=== PATIENT | male | born 1980 | race Caucasian/White ===

== ENCOUNTER 2023-04-12 07:39 | Emergency (ER) | payer OTHER, SELFPAY ==
[2023-04-12 07:42] VITALS: BP 165/78; PULSE 81; RESP 18; TEMP 36.3; O2SAT 98; BMI 25.1
--- NOTE | 2023-04-12 07:56 | ED.GENADULT ---
HPI - General Adult General Chief complaint: Laceration/Wound Stated complaint: finger laceration Time Seen by Provider: 04/12/23 07:52 History of Present Illness HPI narrative: CC: Generalized Pain pt. h/o fibromylagia. hasn't been able to get her gabapentin filled and she missed pain clinic. denies n/v, diarrhea, fevers. 43 year old man presenting to the emergency department Related Data Home Medications Medication Instructions Recorded Confirmed fluoxetine 20 mg capsule 20 mg PO QAM 04/12/23 04/12/23 Allergies Allergy/AdvReac Type Severity Reaction Status Date / Time Penicillins Allergy Verified 04/12/23 07:45 Exam Const: Vital Signs, click to edit/add: Vital Signs - 24 hr 04/12/23 07:42 Temperature 97.3 F L Pulse Rate [Right Pulse Oximeter] 81 Respiratory Rate 18 Blood Pressure [Ri ght Upper Arm] 165/78 H Pulse Oximetry 98 Oxygen Delivery Me thod Room Air Course Vital Signs Vital signs: Initial Vital Signs Temperature 97.3 F L 04/12/23 07:42 Temperature Source Temporal Artery Scan 04/12/23 07:42 Pulse Rate 81 04/12/23 07:42 Respiratory Rate 18 04/12/23 07:42 Blood Pressure 165/78 H 04/12/23 07:42 Blood Pressure Mean 107 H 04/12/23 07:42 Blood Pressure Position Sitting 04/12/23 07:42 Pulse Oximetry 98 04/12/23 07:42 Oxygen Delivery Method Room Air 04/12/23 07:42 Vital Signs Temperature 97.3 F L 04/12/23 07:42 Pulse Rate 81 04/12/23 07:42 Respiratory Rate 18 04/12/23 07:42 Blood Pressure 165/78 H 04/12/23 07:42 Pulse Oximetry 98 04/12/23 07:42 Oxygen Delivery Method Room Air 04/12/23 07:42 Temperature 97.3 F L 04/12/23 07:42 Pulse Rate 81 04/12/23 07:42 Respiratory Rate 18 04/12/23 07:42 Blood Pressure 165/78 H 04/12/23 07:42 Pulse Oximetry 98 04/12/23 07:42 Oxygen Delivery Method Room Air 04/12/23 07:42 Discharge Plan Discharge Prescriptions: No Action fluoxetine 20 mg capsule 20 mg PO QAM Follow Up/Referrals: Jerry Gonzalez MD [Primary Care Provider] -
--- NOTE | 2023-04-12 08:02 | ED_ITS ---
HPI - General Adult General Date Seen: 04/12/23 Chief complaint: Laceration/Wound Stated complaint: finger laceration Time Seen by Provider: 04/12/23 07:52 History of Present Illness HPI narrative: 43-year-old male presenting to the ER on Thursday morning with a laceration to his right 5th finger. He was doing the dishes this morning. As he was just finishing that this is he was trying the inside of wine glass when it broke. He suffered a laceration to the dorsum of his right hand 5th digit from the broken glass about 1 glass. He did not see any glass foreign objects going to the finger. He copiously irrigated the finger under the faucet after laceration. He had ongoing dark red venous oozing from the finger. He was able to apply direct pressure and wrapped his finger up with some gauze but it was still oozing. He came here to the ER. No associated numbness in the distal finger. No other laceration or injury. Last tetanus was 11 years ago in 2012. No history of diabetes or immunosuppression He lacerated it on a wine glass. Related Data Home Medications Medication Instructions Recorded Confirmed fluoxetine 20 mg capsule 20 mg PO QAM 04/12/23 04/12/23 Allergies Allergy/AdvReac Type Severity Reaction Status Date / Time Penicillins Allergy Verified 04/12/23 07:45 [facility] Social History Smoking Status: Former smoker How often do you have a drink containing alcohol: 2-3 times a week How many standard drinks containing alcohol do you have on a typical day: 1 or 2 How often do you have six or more drinks on one occasion: Never AUDIT-C Alcohol total score: 3 Non-prescribed substance use: denies use Exam Narrative: Exam Narrative: Constitutional: Appears well-developed and well-nourished. Alert. Conversant. Non toxic. HENT: Head: Atraumatic. Nose: Nose normal. Mouth/Throat: Oral mucosa is clear and moist. no trismus. Pharynx normal. Tonsils symmetric. No tonsillar enlargement, erythema, or exudate. Eyes: Conjunctivae normal. EOM normal. Pupils equal, round, and reactive to light. No scleral icterus. Neck: Normal range of motion. Neck supple. No tracheal deviation present. Cardiovascular: Normal rate, regular rhythm. No gallop. No friction rub. No murmur heard. Symmetric radial artery pulses Pulmonary/Chest: Effort normal. No stridor. No respiratory distress. No wheezes. No rales. No rhonchi . No tenderness. Abdominal: Soft. Bowel sounds normal. No distension. No mass. No tenderness. No rebound. No guarding. Musculoskeletal: RUE: Normal range of motion. No tenderness. No deformity. He has a 2 cm cu rvilinear laceration over the dorsum of the 5th digit. Laceration starts out over the dorsal/medial proximal phalanges, extends across the PIP joint and ends over the dorsum of the middle phalanges. He has full range of motion in the MCP, PIP, DI P. No evidence for extensor tendon or flexor tendon injury. Tourniquet is applied. Inspected in a bloodless field. No foreign body. Moved through the entire range of motion and not able to see any foreign body, tendon laceration, or involvement of the PIP joint capsule. Intact radial and ulnar digital nerve function. Normal distal cap refill. LUE: Normal range of motion. No tenderness. No deformity RLE: Normal range of motion. No edema. No tenderness. No deformity LLE: Normal range of motion. No edema. No tenderness. No deformity Lymph: No cervical adenopathy. Neurological: Alert and oriented to person, place, and time. Normal strength. CN II-VII intact. No sensory deficit. GCS eye subscore is 4. GCS verbal subscore is 5. GCS motor subscore is 6. Normal coordination Skin: Skin is warm and dry. No rash noted. No pallor. Normal capillary refill. Psychiatric: Normal mood. Normal affect. Const: Vital Signs, click to edit/add: Vital Signs - 24 hr 04/12/23 07:42 Temperature 97.3 F L Pulse Rate [Right Pulse Oximeter] 81 Respiratory Rate 18 Blood Pressure [Ri ght Upper Arm] 165/78 H Pulse Oximetry 98 Oxygen Delivery Me thod Room Air Course Vital Signs Vital signs: Initial Vital Signs Temperature 97.3 F L 04/12/23 07:42 Temperature Source Temporal Artery Scan 04/12/23 07:42 Pulse Rate 81 04/12/23 07:42 Respiratory Rate 18 04/12/23 07:42 Blood Pressure 165/78 H 04/12/23 07:42 Blood Pressure Mean 107 H 04/12/23 07:42 Blood Pressure Position Sitting 04/12/23 07:42 Pulse Oximetry 98 04/12/23 07:42 Oxygen Delivery Method Room Air 04/12/23 07:42 Vital Signs Temperature 97.3 F L 04/12/23 07:42 Pulse Rate 81 04/12/23 07:42 Respiratory Rate 18 04/12/23 07:42 Blood Pressure 165/78 H 04/12/23 07:42 Pulse Oximetry 98 04/12/23 07:42 Oxygen Delivery Method Room Air 04/12/23 07:42 Temperature 97.3 F L 04/12/23 07:42 Pulse Rate 81 04/12/23 07:42 Respiratory Rate 18 04/12/23 07:42 Blood Pressure 165/78 H 04/12/23 07:42 Pulse Oximetry 98 04/12/23 07:42 Oxygen Delivery Method Room Air 04/12/23 07:42 Medical Decision Making MDM Narrative Medical decision making narrative: Findings and exam are consistent with an uncomplicated laceration which was repaired as noted above. There is no evidence at this time to suggest any associated fracture or foreign body. There is no evidence to suggest tendon or arterial injury and patient is neurologically in tact. The patient is to follow up for suture removal as instructed in 8-9 days. Indications to seek urgent reevaluation and signs of infection (including but not limited to increasing pain, redness, swelling, fevers, and drainage) were reviewed. Tetanus is updated today. This is a clean and non-contaminated wound in which prophylactic antibiotics are not indicated. An understanding of the discharge instructions and need for follow up were verbally confirmed. Discharge Plan Discharge Clinical Impression: Laceration Patient Disposition: Home, Self-Care Condition: Stable Instructions: Finger Laceration (ED) Additional Instructions: As we discussed, please follow-up with your doctor to remove the stitches in 8-9 days. If you are unable to see your doctor come back to the urgent care or return to the ER for suture removal. After tomorrow, gently remove the dressing and clean the wound gently with clean water once per day. After the water is clean, dry and reapply antibiotic ointment and a dressing to protect the stitches. While the stitches are in do not submerge her hand under water. Avoid lifting any objects more than 5 lb with the right hand or performing activities that require a lot of bending and moving of your finger so that you do not dislodge the stitches. If you notice any signs of infection-such as redness, swelling, pus draining from the wound, please see your doctor or return to the ER right away. Prescriptions: No Action fluoxetine 20 mg capsule 20 mg PO QAM Follow Up/Referrals: Jerry Gonzalez MD [Primary Care Provider] - Stand Alone Forms: [facility] Info Instructions Procedures Laceration -right hand 5th digit: Verification/time out: correct patient and correct site Side (If applicable): right Size (cm): 2 Description: linear Depth: simple, single layer Local Anesthetic: bupivacaine 0.25% Pre-repair: wound explored, irrigated extensively and deep structures intact (No foreign body or bits of glass.) Skin layer closed with: nylon Size (cm): 5-0 Number of sutures: 7 Technique: simple, interrupted
[2023-04-12] MEDS: TETANUS/DIPHTH/PERTUSSIS 0.5 ML SYRINGE IM (08:58)
--- NOTE | 2023-04-12 09:14 | ED.NURSE ---
Bacitracin applied to wound on pt R pinky finger. Wound bandaged with telfa and tube gauze.
[2023-04-12 09:15] VITALS: BP 145/91; PULSE 74; RESP 16; O2SAT 98
== END 2023-04-12 09:20 | disposition home or self-care (01) ==
PROVIDERS: Emergency Provider Emergency Medicine; PCP Family Medicine
DX: S61.216A Laceration without foreign body of right little finger without damage to nail, initial encounter (principal); W25.XXXA Contact with sharp glass, initial encounter; Y93.G1 Activity, food preparation and clean up
CPT/HCPCS: 12001; 90471; 90715; 99283; 99284